=== PATIENT | male | born 1945 | race Caucasian/White ===

== ENCOUNTER 2016-08-02 19:34 | Emergency (ER) | payer OTHER, MEDICARE ==
[~2016-08-02] VITALS: Ht 190.5 cm; Wt 90.7 kg
[2016-08-02 19:43] VITALS: BP 111/71
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
== END 2016-08-02 20:46 ==
LOC: ERH 19:34
DX: Z04.1 Encounter for examination and observation following transport accident (principal)